=== PATIENT | female | born 1980 | race Caucasian/White ===

== ENCOUNTER 2016-12-05 02:47 | Inpatient (IN) | payer OTHER ==
[2016-12-05] VITALS (21 sets, daily range): BP systolic 86–129; BP diastolic 44–86; PULSE 63–101; TEMP 90–98.1
[~2016-12-05] VITALS: Ht 154.9 cm; Wt 64.5 kg
[~2016-12-05 02:47] MED LIST: DUO-KAPS1 CAP PO; FOLIC ACID 40400 MCG PO
[2016-12-05 04:32] LABS: BASO % 0.3 % (0.0-2.0); EOS % 0.6 % (0-4.0); GRAN # 3.9 (1.4-6.5); GRAN % 60.5 % (42.2-75.2); HEMOGLOBIN 12.5 g/dl (12.5-16.0); LYMPH # 1.8 (1.2-3.4); LYMPH % 28.5 % (20.0-51.0); MEAN CELL VOLUME 101 fl (80.0-100.0); MEAN CORPUSCULAR HEMOGLOBIN 34 pg (27.0-31.0); MEAN CORPUSCULAR HGB CONC 34 g/dl (33.0-37.0); MEAN PLATELET VOLUME 12.5 fl (7.4-10.4); MONO # 0.6 (0.1-0.6); MONO % 9.6 % (1.7-9.3); PLATELET COUNT 118 K/mm3 (130-400); RED BLOOD COUNT 3.66 M/mm3 (4.10-5.30); REDCELL DISTRIBUTION WIDTH-CV 13.1 % (11.5-14.5); WHITE BLOOD COUNT 6.4 K/mm3 (4.8-10.8)
[2016-12-05 04:37] LABS: HEMATOCRIT 36.8 % (37.0-47.0)
[2016-12-06 07:00] LABS: BASO % 0.3 % (0.0-2.0); EOS % 0.3 % (0-4.0); GRAN # 10.2 (1.4-6.5); GRAN % 81.1 % (42.2-75.2); LYMPH # 1.4 (1.2-3.4); LYMPH % 11.1 % (20.0-51.0); MEAN CELL VOLUME 102 fl (80.0-100.0); MEAN CORPUSCULAR HGB CONC 33 g/dl (33.0-37.0); MEAN PLATELET VOLUME 12.2 fl (7.4-10.4); MONO # 0.9 (0.1-0.6); MONO % 6.8 % (1.7-9.3); PLATELET COUNT 118 K/mm3 (130-400); RED BLOOD COUNT 3.34 M/mm3 (4.10-5.30); REDCELL DISTRIBUTION WIDTH-CV 13.1 % (11.5-14.5); WHITE BLOOD COUNT 12.5 K/mm3 (4.8-10.8)
[2016-12-06 07:10] LABS: HEMATOCRIT 34.1 % (37.0-47.0); HEMOGLOBIN 11.3 g/dl (12.5-16.0); MEAN CORPUSCULAR HEMOGLOBIN 34 pg (27.0-31.0)
[2016-12-06 07:20] VITALS: BP 118/77; PULSE 77; TEMP 97.9
[2016-12-06] MEDS ORDERED: IBU800 M1 PO (13:28)
[2016-12-06] MEDS ORDERED: PERCOCET 325 MG1 TA2 PO (13:28)
[2016-12-06 17:07] VITALS: BP 105/59; PULSE 86; TEMP 97.5
[2016-12-06 21:00] VITALS: BP 106/75; PULSE 89; TEMP 97.7
[2016-12-07 08:21] VITALS: BP 117/59; PULSE 85; TEMP 97.9
== END 2016-12-07 16:20 | disposition home or self-care (01) | DRG 766 ==
LOC: LDRO 02:47 → OB 04:34
PROVIDERS: Obstetrics & Gynecology
PROC: 10D00Z1 Extraction of Products of Conception, Low, Open Approach (ICD-10-PCS; principal; 2016-12-05)
DX: O32.8XX0 Maternal care for other malpresentation of fetus, not applicable or unspecified (principal); O42.02 Full-term premature rupture of membranes, onset of labor within 24 hours of rupture; O34.211 Maternal care for low transverse scar from previous cesarean delivery; N85.8 Other specified noninflammatory disorders of uterus; O69.81X0 Labor and delivery complicated by cord around neck, without compression, not applicable or unspecified; Z3A.38 38 weeks gestation of pregnancy; Z37.0 Single live birth
CPT/HCPCS: J0690; J1885; J2175; J2270; J2370; J2405; J7120